=== PATIENT | male | born 1970 | race African-American/Black ===

== ENCOUNTER 2020-11-02 09:39 | Emergency (ER) | payer OTHER ==
[2020-11-02 09:55] VITALS: BMI 31.1
[2020-11-02] MEDS ORDERED: niCARdipine HCL 25 MG/10 ML AMPUL IVPB ONE (10:05)
[2020-11-02] MEDS ORDERED: LABETALOL HCL 5 MG/1 ML (100MG/20 ML VIAL) IVPUSH ONE (10:05)
[2020-11-02 10:06] VITALS: TEMP 97.3
[2020-11-02] MEDS ORDERED: LABETALOL HCL 5 MG/1 ML (200MG/40ML VIAL) IVPB ONE (10:06)
[2020-11-02] MEDS ORDERED: levETIRAcetam 500 MG TABLET (FP) PO ONE (10:12)
[2020-11-02 10:15] LABS: BASO % 0.4 % (0-2.0); EOS % 1.5 % (0-4.5); HEMATOCRIT 36.2 % (35.4-49); HEMOGLOBIN 11.8 GM/dL (11.7-16.9); LYMPH % 21.6 % (8-40); MCH 29.7 pg (25.7-33.7); MCHC 32.7 g/dl (32.0-35.9); MEAN CELL VOLUME 90.8 fl (80-96); MEAN PLT VOLUME 10.1 fl (7.5-11.1); MONO % 6.3 % (3.8-10.2); NEUT % 70.2 % (42.8-82.8); PLATELET COUNT 181 K/MM3 (134-434); RBC 3.99 M/mm3 (4.00-5.60); RDW 14.2 % (11.9-15.9); WHITE BLOOD COUNT 8.5 K/mm3 (4.0-10.0)
[2020-11-02] MEDS ORDERED: NICARDIPINE 25 MG in DEXTROSE 5%-WATER - 240 ML IVPB SCH (10:15)
[2020-11-02] MEDS ORDERED: levETIRAcetam 500 MG/5 ML INJECTION VIAL IVPB ONE ×2 (10:17→10:27)
[2020-11-02 10:29] LABS: CHLORIDE 106 mmol/L (98-107); POTASSIUM 3.9 mmol/L (3.5-5.1); SODIUM 141 mmol/L (136-145)
[2020-11-02 10:31] LABS: ALBUMIN 3.8 g/dl (3.4-5.0); ANION GAP 7 MMOL/L (8-16); BLOOD UREA NITROGEN 9.7 mg/dL (7-18); CO2 28 mmol/L (21-32); GLUCOSE,RANDOM 96 mg/dL (74-106)
[2020-11-02 10:34] LABS: SGOT/AST 25 U/L (15-37); SGPT/ALT 34 U/L (13-61)
[2020-11-02 10:35] LABS: CREATININE 1.1 mg/dL (0.55-1.3)
[2020-11-02 10:36] LABS: BILIRUBIN,TOTAL 0.4 mg/dL (0.2-1); CHOLESTEROL 170 mg/dL (50-200); TOT PROT 7.1 g/dl (6.4-8.2); TRIGLYCERIDES 67 mg/dL (0-150)
[2020-11-02 10:37] LABS: ALK PHOS 162 U/L (45-117); LDL CHOLESTEROL (ONLY SJRH) 104 mg/dL (5-100)
[2020-11-02 10:39] LABS: HDL CHOLESTEROL 51 mg/dL (40-60)
[2020-11-02 10:49] LABS: INR 0.9 (0.83-1.09); PROTHROMBIN TIME (PATIENT) 11.1 SEC (9.7-13.0)
[2020-11-02 10:52] LABS: ACTIVATED PTT 30.8 SECONDS (25.2-36.5)
[2020-11-02 10:57] VITALS: BP 156/95; PULSE 72
[2020-11-02 11:05] LABS: PH,URINE 6.5 (5.0-8.0); URINE APPEARANCE CLEAR; URINE BILIRUBIN NEGATIVE (NEGATIVE); URINE COLOR YELLOW; URINE GLUCOSE (UA) NEGATIVE (NEGATIVE); URINE KETONE NEGATIVE (NEGATIVE); URINE LEUK ESTERASE NEGATIVE (NEGATIVE); URINE NITRITE NEGATIVE (NEGATIVE); URINE PROTEIN NEGATIVE (NEGATIVE); URINE UROBILINOGEN 0.2 mg/dL (0.2-1.0)
== END 2020-11-02 11:11 | disposition short-term general hospital (02) ==
LOC: JER 09:39
PROC: 3E033GC Introduction of Other Therapeutic Substance into Peripheral Vein, Percutaneous Approach (ICD-10-PCS; principal; 2020-11-02)
PROC: 3E033GC Introduction of Other Therapeutic Substance into Peripheral Vein, Percutaneous Approach (ICD-10-PCS; 2020-11-02)
PROC: 3E013VG Introduction of Insulin into Subcutaneous Tissue, Percutaneous Approach (ICD-10-PCS; 2020-11-02)
DX: I61.9 Nontraumatic intracerebral hemorrhage, unspecified (principal); I63.9 Cerebral infarction, unspecified
CPT/HCPCS: 36415; 70450-TC; 71045-TC-FY; 80053; 80061; 81003; 82550; 82553; 82962; 83721; 84484; 85025; 85610; 85730; 86850; 86900; 86901; 93005; 93010; 99285-25; C9803; U0003